=== PATIENT | female | born 1965 | race Caucasian/White ===

== ENCOUNTER 2021-08-05 15:36 | Emergency (ER) | payer OTHER ==
[~2021-08-05] VITALS: Ht 167.6 cm; Wt 87.1 kg
[~2021-08-05 15:36] MED LIST: AZITHROMYCIN500 MG PO; DOXYCYCLINE HY100 MG PO; FLEXERIL 10 MG10 MG PO; FLORASTOR250 MG PO; IBUPROFEN400 MG PO; MACROBID 100 M100 MG PO; NORCO 5-325 TA1 EACH PO; NORCO 7.5-3251 EACH PO; NORFLEX 100 MG100 MG PO; OMEPRAZOLE40 MG PO; OMNICEF 300 MG300 MG PO; PHENERGAN 25 MG25 M1 PO; PROVERA10 MG PO; ZOFRAN ODT 4 MG4 MG PO; ZOFRAN ODT 4 MG4 MG SL; ZOFRAN4 MG PO
[2021-08-05 17:52] LABS: HEMOGLOBIN 14.5 gm/dl (12.3-15.3); RED BLOOD COUNT 4.61 M/UL (4.00-5.10); WHITE BLOOD COUNT 4.7 K/UL (4.5-11.0)
[2021-08-05 18:55] LABS: BUN/CREATININE RATIO 20 (0-10)
== END 2021-08-05 21:12 | disposition home or self-care (01) ==
LOC: ER1 15:36
PROVIDERS: Nurse Practitioner
DX: U07.1 COVID-19 (principal); E11.9 Type 2 diabetes mellitus without complications; I10 Essential (primary) hypertension; F41.9 Anxiety disorder, unspecified; Z88.1 Allergy status to other antibiotic agents; Z79.899 Other long term (current) drug therapy; Z23 Encounter for immunization
CPT/HCPCS: 71045; 80053; 82550; 82553; 83874; 84484; 85025; 85652; 86140; 93005; 99284; M0245

== ENCOUNTER 2021-11-24 15:50 | Emergency (ER) | payer OTHER ==
[2021-11-24 16:39] LABS: HEMOGLOBIN 12.5 gm/dl (12.3-15.3); RED BLOOD COUNT 4.01 M/UL (4.00-5.10)
[2021-11-24 17:15] LABS: BUN/CREATININE RATIO 23 (0-10)
== END 2021-11-24 21:14 | disposition home or self-care (01) ==
LOC: ER1 15:50
PROVIDERS: Physician Assistant
DX: E86.0 Dehydration (principal); E11.9 Type 2 diabetes mellitus without complications; Z79.84 Long term (current) use of oral hypoglycemic drugs; I10 Essential (primary) hypertension
CPT/HCPCS: 70450; 80053; 82550; 82553; 83036; 83735; 84484; 85025; 93005; 99284